=== PATIENT | female | born 1990 | race Caucasian/White ===

== ENCOUNTER 2018-02-18 16:14 | Emergency (ER) | payer OTHER ==
[2018-02-18 16:18] VITALS: BP 113/85
--- NOTE | 2018-02-18 16:28 | EDPHY ---
H & P Stated Complaint: L side of face swollen;may think she has skin infection Time Seen by Provider: 02/18/18 16:28 HPI/ROS: HPI CHIEF COMPLAINT: Right-sided facial swelling concern for infection HISTORY OF PRESENT ILLNESS: 27-year-old female she is otherwise healthy no significant medical history she presents emergency room with right cheek swelling. She noticed this over the last 48 hr there are few areas of acne. Concerned about cellulitis and skin infection. She denies any fever. Does have some mild pain. Denies chest pain or shortness of breath. Past Medical History: No significant medical history Past Surgical History: The and no significant surgical history Social History: Denies daily use drugs alcohol tobacco. preschool teacher. Family History: Noncontributory ROS REVIEW OF SYSTEMS: 10 Systems were reviewed and negative with the exception of the elements mentioned in the history of present illness. Exam Constitutional nontoxic no acute distress triage nursing summary reviewed, vital signs reviewed, awake/alert. Eyes normal conjunctivae and sclera, EOMI, PERRLA. HENT face: Few areas of acne to the right cheek. Some mild erythema. No significant swelling no crepitus, no abscess. No necrotizing fasciitis. No reactive lymphadenopathy. normal inspection, atraumatic, moist mucus membranes, no epistaxis, neck supple / no meningismus, no raccoon eyes. Respiratory clear to auscultation bilaterally, normal breath sounds, no respiratory distress, no wheezing. Cardiovascular rate normal, regular rhythm, no murmur, no edema, distal pulses normal. Gastrointestinal soft, non-tender, no rebound, no guarding, normal bowel sounds, no distension, no pulsatile mass. Genitourinary no CVA tenderness. Musculoskeletal no midline vertebral tenderness, full range of motion, no calf swelling, no tenderness of extremities, no meningismus, good pulses, neurovascularly intact. Skin pink, warm, & dry, no rash, skin atraumatic. Neurologic awake, alert and oriented x 3, AAOx3, moves all 4 extremities equally, motor intact, sensory intact, CN II-XII intact, normal cerebellar, normal vision, normal speech. Psychiatric normal mood/affect. Heme/Lymph/Immune no lymphadenopathy. Differential Diagnosis: Includes but is not limited to in a particular order acne, cellulitis, MRSA infection, strep infection Medical Decision Making: Plan for this patient recommend anti-inflammatory pain medicine, warm compresses 2 to 3 times a day for 20 min, antibiotics as prescribed. Return precautions discussed. Re-evaluation: Source: Patient - Personal History LMP (Females 10-55): 15-21 Days Ago Current Tetanus Diphtheria and Acellular Pertussis (TDAP): Yes - Medical/Surgical History Other PMH: healthy - Social History Smoking Status: Never smoked Constitutional: Initial Vital Signs Temperature (C) 36.6 C 02/18/18 16:15 Heart Rate 65 02/18/18 16:15 Respiratory Rate 16 02/18/18 16:15 Blood Pressure 113/85 H 02/18/18 16:15 O2 Sat (%) 97 02/18/18 16:15 O2 Delivery Mode Room Air Allergies/Adverse Reactions: No Known Allergies Allergy (Unverified 02/18/18 16:18) Home Medications: Medication Instructions Recorded Cephalexin [Keflex] 500 mg PO Q6H #28 cap 02/18/18 DULoxetine [Cymbalta 30 MG (*)] 30 mg PO 02/18/18 Departure - Departure Disposition: Home, Routine, Self-Care Clinical Impression: Cellulitis Condition: Good Instructions: Cellulitis (ED) Additional Instructions: 1. Warm compresses 3 times a day for 20 min 2. Return emergency room if there is worsening symptoms 3. Antibiotics. Referrals: [facility] [Primary Care Provider] - As per Instructions Prescriptions: Cephalexin [Keflex] 500 mg PO Q6H #28 cap
== END 2018-02-18 16:45 | disposition home or self-care (01) ==
DX: L03.211 Cellulitis of face (principal)